=== PATIENT | female | born 1995 | race American Indian/Alaskan Native ===

== ENCOUNTER 2016-08-11 08:51 | Emergency (ER) | payer SELFPAY ==
[2016-08-11 10:05] LABS: Basophils % (Auto) 0.6 % (0.0-1.8); Eosinophils % (Auto) 0.7 % (0.0-4.3); Hematocrit 36.8 % (30.3-42.9); Hemoglobin 11.4 gm/dl (10.1-14.3); Mean Corpuscular HGB Conc 31 % (30-34); Mean Corpuscular Volume 74 fl (79-97); Platelet Count 265 K/mm3 (140-440); Red Blood Count 4.98 M/mm3 (3.65-5.03); Red Cell Distribution Width 16.2 % (13.2-15.2); White Blood Count 5.2 K/mm3 (4.5-11.0)
[2016-08-11 10:12] LABS: Mean Corpuscular Hemoglobin 23 pg (28-32)
[2016-08-11 10:26] LABS: Anion Gap 19 mmol/L; BUN/Creatinine Ratio 18.33; Blood Urea Nitrogen 11 mg/dL (7-17); Calcium 9.9 mg/dL (8.4-10.2); Carbon Dioxide 26 mmol/L (22-30); Chloride 99.3 mmol/L (98-107); Glucose 92 mg/dL (65-100); Sodium 140 mmol/L (137-145)
[2016-08-11] MEDS ORDERED: BENADRYL IV ONE (11:07)
[2016-08-11] MEDS ORDERED: COMPAZINE IV ONE (11:14)
[2016-08-11] MEDS ORDERED: NACL 0.9% 1000 ML 1,000 ML ONE (11:41)
[2016-08-11] MEDS ORDERED: NACL 0.9% 1000 ML 1,000 ML IV ONE (11:45)
[2016-08-11] MEDS ORDERED: COMPAZINE 10 MG in NACL 0.9% 50 ML IV ONE (12:30)
--- NOTE | 2016-08-11 13:07 | Cat Scan Report ---
CT scan of head without contrast: History: Headache. Findings: Ventricles normal in size midline location. No evidence of acute ischemia, hemorrhage or mass. No extra-axial fluid collection. Normal brainstem and cerebellum. Normal sinuses and mastoid air cells. Impression: Essentially negative CT scan of head.
[2016-08-11 14:34] LABS: Bacteria,Urine 1+ /HPF (Negative); Bilirubin,Urine NEG (Negative); Blood,Urine NEG (Negative); Ketones,Urine 20 mg/dL (Negative); Leukocyte Esterase,Urine SM (Negative); Mucus,Urine 3+ /HPF; Nitrite,Urine NEG (Negative); Urobilinogen,Urine < 2.0 mg/dL (<2.0)
[2016-08-11 15:09] VITALS: BP 136/81
--- NOTE | 2016-08-11 22:06 | Emergency Department Report ---
Entered by ELLIOTT ARAUJO, acting as scribe for FREDI CASILLAS NP. ED Headache HPI - General Chief Complaint: Headache Stated Complaint: HEADACHE AND DIZZY X 3 DAYS Time Seen by Provider: 08/11/16 10:52 Source: patient Exam Limitations: no limitations - History of Present Illness Initial Comments: 21 year old female with no significant PMHx presents to the ED c/o of a gradual headache that began this morning. Patient states that she's had a constant headache for three days, but was given an unknown medication from her grandmother that relieved her headache last night. She states headaches are constant, throbbing, and aching in quality and an 8 out 10 in severity. Patient stated that heading starting 3 days ago as "sudden, striking worst headache in her life". Patient denies history of headaches. Deneis any head injury or trauma. During that time patient denies any n/v, dizziness, shortness of breath , chest pain, loss of level consciousness. Patient states that it feels like her "brain is moving side to side with dizziness" when she bends over. Associated symptoms include decreased appetite/thirst, but she denies abdominal pain, fever, chills, nausea, vomiting, and diarrhea. She reports taking Aleve and [id number] body/back pain pills the first couple of days with no relief. Denies tobacco use and EtOH consumption. In the ED, she also reports small bumps on bilateral vaginal labia and bilateral inner thighs that began 2 weeks ago. Patient states that associated symptoms began after sexual intercourse. Associated symptoms includes dysuria, itching, clear/yellowish thick discharge, and vaginal odor. LMP 08/06/2016. Timing/Duration: constant, other (3 days) Quality: moderate, achy, constant, throbbing Head Injury Location: frontal (bilateral), temporal (bilateral) Recent Head Trauma: no recent headache/trauma Modifying Factors: improves with: other (improve with unknown medication with mild relief). worse with: medication (Aleve) Associated Symptoms: denies: fever/chills, nausea/vomiting, numbness in legs/ feet, vision changes, other (diarrhea, abdominal pain, and tingling, but reports decreased appetite/thirst) Allergies/Adverse Reactions: Allergies No Known Allergies Allergy (Unverified 08/11/16 09:42) Home Medications: Ambulatory Orders Fluconazole [Diflucan TAB] 150 mg PO ONCE #1 tablet 08/11/16 Naproxen [Naprosyn TAB] 500 mg PO BID PRN #14 tablet 08/11/16 metroNIDAZOLE [Flagyl] 500 mg PO Q12HR 7 Days 08/11/16 ED Review of Systems Comment: All other systems reviewed and negative Constitutional: denies: chills, fever, other (tingling, but reports decreased appetite/thirst) Eyes: denies: vision change ENT: denies: ear pain, throat pain Respiratory: denies: cough, shortness of breath, wheezing Cardiovascular: denies: chest pain, palpitations Endocrine: no symptoms reported Gastrointestinal: denies: abdominal pain, nausea, vomiting, diarrhea Genitourinary: urgency, dysuria, frequency, discharge Musculoskeletal: denies: back pain, joint swelling, arthralgia Skin: denies: rash, lesions Neurological: headache. denies: weakness, numbness, confusion, abnormal gait, vertigo Psychiatric: denies: anxiety, depression Hematological/Lymphatic: denies: easy bleeding, easy bruising ED Past Medical Hx - Past Medical History Previous Medical History?: No - Surgical History Past Surgical History?: No - Social History Smoking Status: Never Smoker Substance Use Type: None - Medications Home Medications: Home Medications Medication Instructions Recorded Confirmed Last Taken Type Fluconazole [Diflucan TAB] 150 mg PO ONCE #1 tablet 08/11/16 Unknown Rx Naproxen [Naprosyn TAB] 500 mg PO BID PRN #14 tablet 08/11/16 Unknown Rx metroNIDAZOLE [Flagyl] 500 mg PO Q12HR 7 Days 08/11/16 Unknown Rx ED Physical Exam - General Limitations: No Limitations General appearance: alert, in no apparent distress - Head Head exam: Present: atraumatic, normocephalic - Eye Eye exam: Present: normal appearance, PERRL, EOMI - ENT ENT exam: Present: normal exam, mucous membranes moist - Neck Neck exam: Present: normal inspection, full ROM. Absent: tenderness, lymphadenopathy - Respiratory Respiratory exam: Present: normal lung sounds bilaterally. Absent: respiratory distress, wheezes, rales, rhonchi, stridor - Cardiovascular Cardiovascular Exam: Present: regular rate, normal rhythm. Absent: systolic murmur, diastolic murmur, rubs, gallop - GI/Abdominal GI/Abdominal exam: Present: soft, normal bowel sounds. Absent: distended, tenderness, guarding, rebound, rigid - External exam: Present: other (clear vaginal discharge, female back order clerk present during exam). Absent: erythema, swelling, lesions, lacerations, ecchymosis, bleeding Speculum exam: Present: vaginal discharge (yellow cottage cheese), cervical discharge, other (slightly foul odor vaginal smell, female back order clerk present during exam). Absent: erythema, vaginal bleeding, foreign body, laceration Bi-manual exam: Present: normal bi-manual exam. Absent: cervical motion tendernes, adnexal tenderness, adnexal mass, uterine enlargement, uterine tenderness - Expanded Exam Expanded Female exam: Absent: vulvar erythema, vulvar tenderness, foreign body External exam: Present: normal. Absent: , bleeding Speculum exam: Present: vaginal discharge (clear/yellowish that appears cottage cheese), other (slightly foul vaginal odor smell). Absent: vaginal bleeding - Extremities Exam Extremities exam: Present: normal inspection, full ROM - Back Exam Back exam: Present: normal inspection, full ROM. Absent: tenderness, paraspinal tenderness, vertebral tenderness - Neurological Exam Neurological exam: Present: alert, oriented X3 - Expanded Neurological Exam Expanded Neurological exam: Absent: innattentive Patient oriented to: Present: person, place, time Speech: Present: fluid speech Cranial nerves: EOM's Intact: Normal, Gag Reflex: Normal, Tongue Deviation: Normal, Nystagmus: Normal, Facial Sensation: Normal, Facial Palsy with Forehead Movement: Normal, Facial Palsy without Forehead Movement: Normal Ataxia: Absent: yes Cerebellar function: Finger to Nose: Normal, Heel to Durán: Normal, Romberg: Normal Upper motor neuron: Ochoa Neglect: Normal, Pronator Drift: Normal, Babinski Sign : Normal, Sensory Extinction: Normal Sensory exam: Upper Extremity Light Touch: Normal, Upper Extremity Pin Prick: Normal, Upper Extremity Temperature: Normal, UE 2 Point Discrimination: Normal, Lower Extremity Light Touch: Normal, Lower Extremity Pin Prick: Normal, Lower Extremity Temperature: Normal, LE 2 Point Discrimination: Normal Motor strength exam: RUE: 5, LUE: 5, RLE: 5, LLE: 5 Best Eye Response ([place]): (4) open spontaneously Best Motor Response ([place]): (6) obeys commands Best Verbal Response ([place]): (5) oriented [place] Total: 15 - Psychiatric Psychiatric exam: Present: normal affect, normal mood - Skin Skin exam: Present: warm, dry, intact ED Course Vital Signs 08/11/16 08/11/16 09:52 15:08 Temperature 97.9 F Pulse Rate 85 80 Respiratory 18 16 Rate Blood Pressure 141/87 Blood Pressure 136/81 [Left] O2 Sat by Pulse 100 100 Oximetry - Reevaluation(s) Reevaluation #1: 08/11/16 11:51 Dr. Wright of the patient and plan of care during this visit. 08/11/16 13:56 Patient stating headache has subsided. Patient stating headache is [address] scan is negative as per Dr. John. ED Medical Decision Making - Lab Data Result diagrams: 08/11/16 09:48 08/11/16 09:48 - Medical Decision Making Ed course: 21-year-old female that presents for headache 3 days. 1- IV with NS started. 2- IV Benadry 25mg plus compazine 10mg prescribed. Patient headache is 0 out of 10 now. States feels much better. 3- Dr. Wright aware of patient and plan of care 4- Wet prep and cultures sent to lab 6-Ct of head wo contrast results: By Dr. John. Essentially negative CT scan of the head. 7- at this time the patient is nontoxic in appearance or ill. No signs of any distress. Patient has no questions about discharge plan. ED Disposition Clinical Impression: Tension type headache, unspecified, Bacterial vaginosis Disposition: DISCHARGED TO HOME OR SELFCARE Is pt being admited?: No Does the pt Need Aspirin: No Condition: Stable Instructions: Bacterial Vaginosis (ED) Additional Instructions: follow-up with a internet database specialist and 3-5 days. Please follow up with primary care doctor in 3-5 days. If signs and symptoms of headache worsen, nausea vomiting, shortness of breath, chest pain, or numbness or tingling sensation is reported by the emergency room. Prescriptions: Fluconazole [Diflucan TAB] 150 mg PO ONCE #1 tablet metroNIDAZOLE [Flagyl] 500 mg PO Q12HR 7 Days Naproxen [Naprosyn TAB] 500 mg PO BID PRN #14 tablet PRN Reason: Pain Referrals: PRIMARY CARE, [Primary Care Provider] - 3-5 Days [facility] [Provider Group] - 3-5 Days Forms: STI Treatment and Prevention, Work/School Release Form(ED) This documentation as recorded by the GAYLE stephens JASMINE,accurately reflects the service I personally performed and the decisions made by me,FREDI CASILLAS, SOCIAL SCIENCE MANAGER.
== END 2016-08-11 15:08 | disposition home or self-care (01) ==
LOC: ED 08:51
DX: G44.209 Tension-type headache, unspecified, not intractable (principal); N76.0 Acute vaginitis
CPT/HCPCS: 36415; 70450; 80048; 81001; 81025; 84484; 85025; 87086; 87210; 87591; 96361; 96365; 96375; 99285; J0780; J1200; J7030

== ENCOUNTER 2017-03-16 11:26 | Emergency (ER) | payer SELFPAY ==
[2017-03-16 13:10] LABS: Bacteria,Urine 1+ /HPF (Negative); Bilirubin,Urine NEG (Negative); Blood,Urine NEG (Negative); Ketones,Urine NEG (Negative); Leukocyte Esterase,Urine SM (Negative); Mucus,Urine FEW /HPF; Nitrite,Urine NEG (Negative); Protein,Urine <15 mg/dL mg/dL (Negative)
[2017-03-16] MEDS ORDERED: TORADOL IM ONE (13:23)
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
--- NOTE | 2017-03-16 14:01 | XRay Report ---
Single view pelvis: Next History: Pelvic pain. Findings: No lytic or blastic lesion. No radiopaque calculus or abnormal calcification. Impression: Essentially negative pelvis.
--- NOTE | 2017-03-16 14:02 | XRay Report ---
Lumbar spine 2 views: History: Pain. Findings: Normal height of vertebral bodies and intervertebral disc. Normal articular surfaces. No fracture. No soft tissue calcification. Impression: No bony or articular abnormality lumbar spine.
[2017-03-16] MEDS ORDERED: NACL 0.9% 1000 ML 1,000 ML IV ONE (14:16)
[2017-03-16 17:06] VITALS: BP 108/68
== END 2017-03-16 17:22 | disposition home or self-care (01) ==
LOC: ED 11:26
DX: M54.42 Lumbago with sciatica, left side (principal); M54.17 Radiculopathy, lumbosacral region; D72.829 Elevated white blood cell count, unspecified
CPT/HCPCS: 72100; 72170; 81001; 81025; 87086; 96360; 96372; 99284; J1885; J7030

== ENCOUNTER 2017-03-18 11:02 | Emergency (ER) | payer SELFPAY ==
[2017-03-18 11:15] VITALS: BP 117/44
--- NOTE | 2017-03-18 13:05 | Emergency Department Report ---
Abscess Boil HPI - HPI Chief Complaint: Skin/Abscess/Foreign Body Stated Complaint: ABSCESS LOWER BACK Time Seen by Provider: 03/18/17 12:54 Duration: 5 Days Location: Sacral/Pilonidal History: Yes Pain, Yes Purulent Drainage, No Fever, No Numbness, No Foreign Body , No Previous History, No Insect Bite HPI: Pt seen for low back pain a couple days ago and got worse. States she felt something wet last night and realized she had an abscess that had started to drain where the pain was. Was unaware that this was present prior as she had not felt anything abnormal in that area. Pain and swelling continues. Home Medications: Previous Rx's Medication Instructions Recorded Last Taken Type Fluconazole [Diflucan TAB] 150 mg PO ONCE #1 tablet 08/11/16 Unknown Rx Naproxen [Naprosyn TAB] 500 mg PO BID PRN #14 tablet 08/11/16 Unknown Rx metroNIDAZOLE [Flagyl] 500 mg PO Q12HR 7 Days tab 08/11/16 Unknown Rx Cyclobenzaprine HCl [Flexeril 5 MG 5 mg PO TID PRN #15 tab 03/16/17 Unknown Rx TAB] Ibuprofen [Motrin 600 MG tab] 600 mg PO Q8H PRN #15 tablet 03/16/17 Unknown Rx Acetaminophen/Codeine [Tylenol 1 tab PO Q6H PRN #12 tab 03/18/17 Unknown Rx /Codeine # 3 tab] Sulfamethoxazole/Trimethoprim 1 each PO BID #20 tablet 03/18/17 Unknown Rx [Bactrim DS TAB] Allergies/Adverse Reactions: Allergies Allergy/AdvReac Type Severity Reaction Status Date / Time No Known Allergies Allergy Verified 03/18/17 11:09 ED Review of Systems ROS: Stated complaint: ABSCESS LOWER BACK Other details as noted in HPI Comment: All other systems reviewed and negative Constitutional: denies: chills, fever Eyes: denies: eye pain, eye discharge, vision change ENT: denies: ear pain, throat pain Respiratory: denies: cough, shortness of breath, wheezing Cardiovascular: denies: chest pain, palpitations Endocrine: no symptoms reported Gastrointestinal: denies: abdominal pain, nausea, diarrhea Genitourinary: denies: urgency, dysuria, discharge Musculoskeletal: denies: back pain, joint swelling, arthralgia Skin: denies: rash, lesions Neurological: denies: headache, weakness, paresthesias Psychiatric: denies: anxiety, depression Hematological/Lymphatic: denies: easy bleeding, easy bruising ED Past Medical Hx - Past Medical History Previous Medical History?: No - Surgical History Past Surgical History?: No - Social History Smoking Status: Never Smoker Substance Use Type: None - Medications Home Medications: Home Medications Medication Instructions Recorded Confirmed Last Taken Type Fluconazole [Diflucan TAB] 150 mg PO ONCE #1 tablet 08/11/16 Unknown Rx Naproxen [Naprosyn TAB] 500 mg PO BID PRN #14 tablet 08/11/16 Unknown Rx metroNIDAZOLE [Flagyl] 500 mg PO Q12HR 7 Days tab 08/11/16 Unknown Rx Cyclobenzaprine HCl [Flexeril 5 MG 5 mg PO TID PRN #15 tab 03/16/17 Unknown Rx TAB] Ibuprofen [Motrin 600 MG tab] 600 mg PO Q8H PRN #15 tablet 03/16/17 Unknown Rx Acetaminophen/Codeine [Tylenol 1 tab PO Q6H PRN #12 tab 03/18/17 Unknown Rx /Codeine # 3 tab] Sulfamethoxazole/Trimethoprim 1 each PO BID #20 tablet 03/18/17 Unknown Rx [Bactrim DS TAB] ED Abscess Boil Physical Exam - Exam General: Vital signs noted. No distress. Alert and acting appropriately. Large pilonidal sinus tract with abscess extending to both buttocks. Size: >5 cm Exam: Yes Tenderness, Yes Fluctuance, Yes Surrounding Cellulites/Erythema, Yes Normal Neurologic Exam, Yes Normal Circulation, No Lymphangitis, No Crepitation , No Heart Murmur I & D Note - I & D Note I & D Note: Area was prepped and draped in usual sterile fashion. Betadine x 3. Immediatelly noted copious drainage from small opening in gluteal cleft. Lidocaine 2% (3 cc) injected and opening enlarged with 11 blade. Copious purulent drianage continued. Packed with iodoform gauze (1/2 inch). ED Course Vital Signs 03/18/17 03/18/17 11:09 12:51 Temperature 98.6 F Pulse Rate 127 H 105 H Blood Pressure 117/44 O2 Sat by Pulse 99 Oximetry - Reevaluation(s) Reevaluation #1: 03/18/17 13:51 Pt is in NAD and stable for d/c. Critical care attestation.: If time is entered above; I have spent that time in minutes in the direct care of this critically ill patient, excluding procedure time. ED Medical Decision Making - Medical Decision Making Pilonidal sinus tract with abscess s/p I&D. Follow in 2 days for recheck. IM Cleocin given today. - Differential Diagnosis abscess, cellulitis ED Disposition Clinical Impression: Pilonidal sinus with abscess Disposition: TO HOME OR SELFCARE Is pt being admited?: No Condition: Good Instructions: Abscess (ED), Abscess Incision and Drainage (ED) Prescriptions: Acetaminophen/Codeine [Tylenol /Codeine # 3 tab] 1 tab PO Q6H PRN #12 tab PRN Reason: Pain Sulfamethoxazole/Trimethoprim [Bactrim DS TAB] 1 each PO BID #20 tablet Referrals: PRIMARY CARE,MD [Primary Care Provider] - 3-5 Days MARIE HOLCOMB DO [Staff Physician] - 3-5 Days Time of Disposition: 14:19
[2017-03-18] MEDS ORDERED: XYLOCAINE 2% INFILTRATI ONE (13:07)
[2017-03-18] MEDS ORDERED: CLEOCIN IM ONE (13:34)
== END 2017-03-18 14:50 | disposition home or self-care (01) ==
LOC: ED 11:02
DX: L05.01 Pilonidal cyst with abscess (principal)
CPT/HCPCS: 96372

== ENCOUNTER 2017-03-20 11:42 | Emergency (ER) | payer SELFPAY ==
[2017-03-20 11:56] VITALS: BP 122/65
--- NOTE | 2017-03-20 14:40 | Emergency Department Report ---
ED Recheck HPI - General Chief Complaint: Wound/Laceration Stated Complaint: FOLLOW UP, PACKING REMOVAL Time Seen by Provider: 03/20/17 13:56 Source: patient Mode of arrival: Ambulatory Limitations: No Limitations - History of Present Illness Initial Comments: This is a 21-year-old female nontoxic, well nourished in appearance, no acute signs of distress presents to the ED for reevaluation of incision and drainage. Patient states she had a incision and drainage 2 days ago. Patient does agree to take antibiotics; Bactrim. Denies any pus, drainage, fever, chills, nausea, vomiting, chest pain shortness of breath. Denies fever or chills. MD Complaint: wound re-check -: Gradual, days(s) (2) Initial Visit For: abscess Returns Today for: wound recheck Symptoms Since Prior Visit: no new symptoms, improved Context: planned re-check Associated Symptoms: none. denies: fever, chills, chest pain, shortness of breath, rash, malaise, nasuea, abdominal pain - Related Data Previous Rx's Medication Instructions Recorded Last Taken Type Fluconazole [Diflucan TAB] 150 mg PO ONCE #1 tablet 08/11/16 Unknown Rx Naproxen [Naprosyn TAB] 500 mg PO BID PRN #14 tablet 08/11/16 Unknown Rx metroNIDAZOLE [Flagyl] 500 mg PO Q12HR 7 Days tab 08/11/16 Unknown Rx Cyclobenzaprine HCl [Flexeril 5 MG 5 mg PO TID PRN #15 tab 03/16/17 Unknown Rx TAB] Ibuprofen [Motrin 600 MG tab] 600 mg PO Q8H PRN #15 tablet 03/16/17 Unknown Rx Acetaminophen/Codeine [Tylenol 1 tab PO Q6H PRN #12 tab 03/18/17 Unknown Rx /Codeine # 3 tab] Sulfamethoxazole/Trimethoprim 1 each PO BID #20 tablet 03/18/17 Unknown Rx [Bactrim DS TAB] Allergies Allergy/AdvReac Type Severity Reaction Status Date / Time No Known Allergies Allergy Verified 03/18/17 11:09 ED Review of Systems ROS: Stated complaint: FOLLOW UP, PACKING REMOVAL Other details as noted in HPI Constitutional: denies: chills, fever Eyes: denies: eye pain, eye discharge, vision change ENT: denies: ear pain, throat pain Respiratory: denies: cough, shortness of breath, wheezing Cardiovascular: denies: chest pain, palpitations Endocrine: no symptoms reported Gastrointestinal: denies: abdominal pain, nausea, diarrhea Genitourinary: denies: urgency, dysuria, discharge Musculoskeletal: denies: back pain, joint swelling, arthralgia Skin: denies: rash, lesions Neurological: denies: headache, weakness, paresthesias Psychiatric: denies: anxiety, depression Hematological/Lymphatic: denies: easy bleeding, easy bruising ED Past Medical Hx - Past Medical History Previous Medical History?: Yes Additional medical history: Boil - Surgical History Past Surgical History?: No - Social History Smoking Status: Never Smoker Substance Use Type: Prescribed - Medications Home Medications: Home Medications Medication Instructions Recorded Confirmed Last Taken Type Fluconazole [Diflucan TAB] 150 mg PO ONCE #1 tablet 08/11/16 Unknown Rx Naproxen [Naprosyn TAB] 500 mg PO BID PRN #14 tablet 08/11/16 Unknown Rx metroNIDAZOLE [Flagyl] 500 mg PO Q12HR 7 Days tab 08/11/16 Unknown Rx Cyclobenzaprine HCl [Flexeril 5 MG 5 mg PO TID PRN #15 tab 03/16/17 Unknown Rx TAB] Ibuprofen [Motrin 600 MG tab] 600 mg PO Q8H PRN #15 tablet 03/16/17 Unknown Rx Acetaminophen/Codeine [Tylenol 1 tab PO Q6H PRN #12 tab 03/18/17 Unknown Rx /Codeine # 3 tab] Sulfamethoxazole/Trimethoprim 1 each PO BID #20 tablet 03/18/17 Unknown Rx [Bactrim DS TAB] ED Physical Exam - General Limitations: No Limitations General appearance: alert, in no apparent distress - Head Head exam: Present: atraumatic, normocephalic - Eye Eye exam: Present: normal appearance - ENT ENT exam: Present: mucous membranes moist - Neck Neck exam: Present: normal inspection - Respiratory Respiratory exam: Present: normal lung sounds bilaterally. Absent: respiratory distress - Cardiovascular Cardiovascular Exam: Present: regular rate, normal rhythm. Absent: systolic murmur, diastolic murmur, rubs, gallop - GI/Abdominal GI/Abdominal exam: Present: soft, normal bowel sounds - Extremities Exam Extremities exam: Present: normal inspection - Back Exam Back exam: Present: normal inspection - Neurological Exam Neurological exam: Present: alert, oriented X3 - Psychiatric Psychiatric exam: Present: normal affect, normal mood - Skin Skin exam: Present: warm, dry, intact, normal color, other (dressing to the gluteal cleft of the upper buttock region midline). Absent: rash ED Course Vital Signs 03/20/17 11:51 Temperature 98 F Pulse Rate 111 H Respiratory 20 Rate Blood Pressure 122/65 O2 Sat by Pulse 96 Oximetry - Reevaluation(s) Reevaluation #1: 03/20/17 14:42 Patient is speaking in full sentences with no signs of distress noted. ED Recheck MDM - Medical Decision Making 21-year-old female that presents with reevaluation of I&D. Upon examination with corporate trust officer Lori present during exam. 1 inch iodoform packing removed with some purulent drainage noted. I irrigated with normal saline. A sterile 4 x 4 dressing with tube has been applied. Patient was instructed to continue taking antibiotics as prescribed. Patient was instructed to Follow-up with a primary care doctor in 3-5 days or if symptoms worsen and continue return to emergency room as soon as possible. At time time of discharge, the patient does not seem toxic or ill in appearance. No acute signs of distress noted. Patient agrees to discharge treatment plan of care. No further questions noted by the patient. Critical care attestation.: If time is entered above; I have spent that time in minutes in the direct care of this critically ill patient, excluding procedure time. ED Disposition Clinical Impression: Encounter for recheck of abscess following incision and drainage Disposition: DC-01 TO HOME OR SELFCARE Is pt being admited?: No Does the pt Need Aspirin: No Condition: Stable Instructions: Sulfamethoxazole/Trimethoprim (By mouth) Additional Instructions: Follow-up with a primary care doctor in 3-5 days or if symptoms worsen and continue return to emergency room as soon as possible. Continue taking antibiotics as prescribed Referrals: PRIMARY CAREMD [Primary Care Provider] - 3-5 Days HUDSON KELLOGG MD [Staff Physician] - 3-5 Days [facility] [Outside] - 3-5 Days [facility] [Outside] - 3-5 Days Forms: Work/School Release Form(ED)
== END 2017-03-20 15:02 | disposition home or self-care (01) ==
LOC: ED 11:42
DX: L02.31 Cutaneous abscess of buttock (principal)
CPT/HCPCS: 99282

== ENCOUNTER 2018-09-21 21:08 | Emergency (ER) | payer SELFPAY ==
--- NOTE | 2018-09-21 21:57 | Emergency Department Report ---
Blank Doc - Documentation Documentation: pt states she has epigastric pain and bilateral back pain +nausea no V no diarrhea last BM was yesterday no urinary sx LNMP: September 12 no PMHx no allergies to medications no daily meds non smoker non drinker no drug use
[2018-09-21 22:49] LABS: Basophils % (Auto) 0.4 % (0.0-1.8); Eosinophils % (Auto) 0.6 % (0.0-4.3); Hematocrit 34.6 % (30.3-42.9); Hemoglobin 11.2 gm/dl (10.1-14.3); Lymphocytes # (Auto) 2.1 K/mm3 (1.2-5.4); Lymphocytes % (Auto) 40.2 % (13.4-35.0); Mean Corpuscular HGB Conc 32 % (30-34); Mean Corpuscular Volume 77 fl (79-97); Monocytes # (Auto) 0.5 K/mm3 (0.0-0.8); Monocytes % (Auto) 8.9 % (0.0-7.3); Platelet Count 320 K/mm3 (140-440); Red Blood Count 4.49 M/mm3 (3.65-5.03); Red Cell Distribution Width 16.5 % (13.2-15.2)
[2018-09-21 23:04] LABS: Alanine Aminotransferase 17 units/L (7-56); Albumin 4.1 g/dL (3.9-5); BUN/Creatinine Ratio 11; Blood Urea Nitrogen 8 mg/dL (7-17); Calcium 9.5 mg/dL (8.4-10.2); Hemolysis Index 9
[2018-09-21 23:12] LABS: Bacteria,Urine 2+ /HPF (Negative); Bilirubin,Urine NEG (Negative); Blood,Urine NEG (Negative); Color,Urine Yellow (Yellow); Mucus,Urine FEW /HPF; Protein,Urine <15 mg/dL mg/dL (Negative); Urobilinogen,Urine < 2.0 mg/dL (<2.0)
[2018-09-21 23:17] LABS: HCG Qualitative,Urine Negative (Negative)
[2018-09-21] MEDS ORDERED: ZOFRAN ODT PO ONE (23:34)
[2018-09-21] MEDS ORDERED: PEPCID PO ONE (23:34)
[2018-09-21] MEDS ORDERED: MACROBID PO ONE (23:34)
--- NOTE | 2018-09-21 23:44 | Emergency Department Report ---
ED Abdominal Pain HPI - General Chief Complaint: Abdominal Pain Stated Complaint: ABDOMINAL/BACK PAINS Time Seen by Provider: 09/21/18 21:54 Source: patient Mode of arrival: Ambulatory Limitations: No Limitations - History of Present Illness Initial Comments: Patient is a 23-year-old female who is presenting with abdominal pain. Patient has no past medical history is significant. Patient states that she has generalized abdominal discomfort but is worse in the epigastrium as well as her sides. Patient also complains of low back di scomfort. However pains or 5 out of 10 in severity and achy in nature. Patient has some associated nausea with no vomiting and also denies fever chills or vaginal discharge or diarrhea. Patient states she does have some mild urinary frequency. - Related Data Previous Rx's Medication Instructions Recorded Last Taken Type Fluconazole [Diflucan TAB] 150 mg PO ONCE #1 tablet 08/11/16 Unknown Rx Naproxen [Naprosyn TAB] 500 mg PO BID PRN #14 tablet 08/11/16 Unknown Rx metroNIDAZOLE [Flagyl] 500 mg PO Q12HR 7 Days tab 08/11/16 Unknown Rx Cyclobenzaprine HCl [Flexeril 5 MG 5 mg PO TID PRN #15 tab 03/16/17 Unknown Rx TAB] Ibuprofen [Motrin 600 MG tab] 600 mg PO Q8H PRN #15 tablet 03/16/17 Unknown Rx Acetaminophen/Codeine [Tylenol 1 tab PO Q6H PRN #12 tab 03/18/17 Unknown Rx /Codeine # 3 tab] Sulfamethoxazole/Trimethoprim 1 each PO BID #20 tablet 03/18/17 Unknown Rx [Bactrim DS TAB] Nitrofurantoin [place]/M-Cryst 100 mg PO Q12HR #14 capsule 09/21/18 Unknown Rx [Macrobid CAP] Ondansetron [Zofran Odt] 4 mg PO Q8HR #10 tab.rapdis 09/21/18 Unknown Rx Phenazopyridine [Pyridium] 200 mg PO BID #6 tab 09/21/18 Unknown Rx traMADol [Ultram] 50 mg PO Q6HR PRN #12 tablet 09/21/18 Unknown Rx Allergies Allergy/AdvReac Type Severity Reaction Status Date / Time No Known Allergies Allergy Verified 03/18/17 11:09 ED Review of Systems ROS: Stated complaint: ABDOMINAL/BACK PAINS Other details as noted in HPI Comment: All other systems reviewed and negative ED Past Medical Hx - Past Medical History Previous Medical History?: No Additional medical history: Boil - Surgical History Past Surgical History?: No - Social History Smoking Status: Never Smoker Substance Use Type: None - Medications Home Medications: Home Medications Medication Instructions Recorded Confirmed Last Taken Type Fluconazole [Diflucan TAB] 150 mg PO ONCE #1 tablet 08/11/16 Unknown Rx Naproxen [Naprosyn TAB] 500 mg PO BID PRN #14 tablet 08/11/16 Unknown Rx metroNIDAZOLE [Flagyl] 500 mg PO Q12HR 7 Days tab 08/11/16 Unknown Rx Cyclobenzaprine HCl [Flexeril 5 MG 5 mg PO TID PRN #15 tab 03/16/17 Unknown Rx TAB] Ibuprofen [Motrin 600 MG tab] 600 mg PO Q8H PRN #15 tablet 03/16/17 Unknown Rx Acetaminophen/Codeine [Tylenol 1 tab PO Q6H PRN #12 tab 03/18/17 Unknown Rx /Codeine # 3 tab] Sulfamethoxazole/Trimethoprim 1 each PO BID #20 tablet 03/18/17 Unknown Rx [Bactrim DS TAB] Nitrofurantoin [place]/M-Cryst 100 mg PO Q12HR #14 capsule 09/21/18 Unknown Rx [Macrobid CAP] Ondansetron [Zofran Odt] 4 mg PO Q8HR #10 tab.rapdis 09/21/18 Unknown Rx Phenazopyridine [Pyridium] 200 mg PO BID #6 tab 09/21/18 Unknown Rx traMADol [Ultram] 50 mg PO Q6HR PRN #12 tablet 09/21/18 Unknown Rx ED Physical Exam - General Limitations: No Limitations General appearance: alert, in no apparent distress - Head Head exam: Present: atraumatic, normocephalic - Eye Eye exam: Present: normal appearance, PERRL, EOMI - ENT ENT exam: Present: normal orophraynx, mucous membranes moist - Neck Neck exam: Present: normal inspection - Respiratory Respiratory exam: Present: normal lung sounds bilaterally. Absent: respiratory distress, wheezes, rales, rhonchi - Cardiovascular Cardiovascular Exam: Present: regular rate, normal rhythm, normal heart sounds. Absent: systolic murmur, diastolic murmur, rubs, gallop - GI/Abdominal GI/Abdominal exam: Present: soft, tenderness (mild discomfort with palpation of the epigastrium), normal bowel sounds. Absent: distended, guarding, rebound, rigid - Extremities Exam Extremities exam: Present: normal inspection, full ROM - Back Exam Back exam: Present: normal inspection. Absent: paraspinal tenderness, vertebral tenderness - Neurological Exam Neurological exam: Present: alert, oriented X3 - Psychiatric Psychiatric exam: Present: normal affect, normal mood - Skin Skin exam: Present: warm, dry, intact, normal color. Absent: rash ED Course Vital Signs 09/21/18 09/21/18 21:14 21:55 Temperature 97.9 F 97.9 F Pulse Rate 102 H 102 H Respiratory 14 14 Rate Blood Pressure 151/78 151/78 O2 Sat by Pulse 100 100 Oximetry ED Medical Decision Making - Lab Data Result diagrams: 09/21/18 22:03 09/21/18 22:03 Lab Results 09/21/18 09/21/18 09/21/18 Range/Units 22:03 22:03 22:24 WBC 5.3 (4.5-11.0) K/mm3 RBC 4.49 (3.65-5.03) M/mm3 Hgb 11.2 (10.1-14.3) gm/dl Hct 34.6 (30.3-42.9) % MCV 77 L (79-97) fl MCH 25 L (28-32) pg MCHC 32 (30-34) % RDW 16.5 H (13.2-15.2) % Plt Count 320 (140-440) K/mm3 Lymph % (Auto) 40.2 H (13.4-35.0) % [place] % (Auto) 8.9 H (0.0-7.3) % Eos % (Auto) 0.6 (0.0-4.3) % Baso % (Auto) 0.4 (0.0-1.8) % Lymph # 2.1 (1.2-5.4) K/mm3 [place] # 0.5 (0.0-0.8) K/mm3 Eos # 0.0 (0.0-0.4) K/mm3 Baso # 0.0 (0.0-0.1) K/mm3 Seg Neutrophils % 49.9 (40.0-70.0) % Seg Neutrophils # 2.6 (1.8-7.7) K/mm3 Sodium 142 (137-145) mmol/L Potassium 4.0 (3.6-5.0) mmol/L Chloride 99.9 (98-107) mmol/L Carbon Dioxide 27 (22-30) mmol/L Anion Gap 19 mmol/L BUN 8 (7-17) mg/dL Creatinine 0.7 (0.7-1.2) mg/dL Estimated GFR > 60 ml/min BUN/Creatinine Ratio 11 % Glucose 92 (65-100) mg/dL Calcium 9.5 (8.4-10.2) mg/dL Total Bilirubin < 0.20 (0.1-1.2) mg/dL AST 24 (5-40) units/L ALT 17 (7-56) units/L Alkaline Phosphatase 87 (35-129) units/L Total Protein 8.3 H (6.3-8.2) g/dL Albumin 4.1 (3.9-5) g/dL Albumin/Globulin Ratio 1.0 % Lipase 37 (13-60) units/L Urine Color Yellow (Yellow) Urine Turbidity Cloudy (Clear) Urine pH 5.0 (5.0-7.0) Ur Specific [place] 1.015 (1.003-1.030) Urine Protein <15 mg/dl (Negative) mg/dL Urine Glucose (UA) Neg (Negative) mg/dL Urine Ketones Neg (Negative) mg/dL Urine Blood Neg (Negative) Urine Nitrite Neg (Negative) Urine Bilirubin Neg (Negative) Urine Urobilinogen < 2.0 (<2.0) mg/dL Ur Leukocyte Esterase Lg (Negative) Urine WBC (Auto) 59.0 H (0.0-6.0) /HPF Urine RBC (Auto) 11.0 (0.0-6.0) /HPF U Epithel Cells (Auto) 20.0 H (0-13.0) /HPF Urine Bacteria (Auto) 2+ (Negative) /HPF Urine Mucus Few /HPF Urine HCG, Qual Negative (Negative) - Medical Decision Making Patient with evidence of UTI. Patient's nausea likely secondary to general infection. Patient to be started on Macrobid given meds for symptomatic relief and she'll be discharged home. Critical care attestation.: If time is entered above; I have spent that time in minutes in the direct care of this critically ill patient, excluding procedure time. ED Disposition Clinical Impression: UTI (urinary tract infection) Qualifiers: Urinary tract infection type: site unspecified Hematuria presence: without hematuria Qualified Code(s): N39.0 - Urinary tract infection, site not specified Disposition: TO HOME OR SELFCARE Is pt being admited?: No Does the pt Need Aspirin: No Condition: Stable Instructions: Urinary Tract Infection in Women (ED) Referrals: MATTIE LEZAMA MD [Referring] - 3-5 Days Time of Disposition: 23:44
[2018-09-22 00:07] VITALS: BP 151/76
== END 2018-09-21 23:59 | disposition home or self-care (01) ==
LOC: ED 21:08
DX: N39.0 Urinary tract infection, site not specified (principal); Z79.899 Other long term (current) drug therapy
CPT/HCPCS: 36415; 80053; 81001; 81025; 83690; 85025; 99283; Q0162

== ENCOUNTER 2021-02-24 11:31 | Emergency (ER) | payer SELFPAY ==
[2021-02-24 11:37] VITALS: BP 133/81
--- NOTE | 2021-02-24 11:51 | Emergency Department Report ---
HPI - General Chief Complaint: Earache Time Seen by Provider: 02/24/21 11:40 - HPI HPI: MSE 1 The patient is a 25-year-old female present with a chief complaint of "I guess I have an ear infection." The patient states over the past 3 days she has been getting over a cold which included a cough and rhinorrhea. Patient states yesterday she developed left ear pain and this morning hearing attenuation from the left ear. Patient denies history of fever or sore throat ED Past Medical Hx - Past Medical History Previous Medical History?: No Additional medical history: Boil - Surgical History Past Surgical History?: No - Family History Family history: no significant - Social History Smoking Status: Never Smoker Substance Use Type: None (Denies illicit drug use) - Medications Home Medications: Home Medications Medication Instructions Recorded Confirmed Last Taken Type Fluconazole (Nf) [Diflucan TAB] 150 mg PO ONCE #1 tablet 08/11/16 Unknown Rx Naproxen [Naprosyn TAB] 500 mg PO BID PRN #14 tablet 08/11/16 Unknown Rx metroNIDAZOLE [Flagyl] 500 mg PO Q12HR 7 Days tab 08/11/16 Unknown Rx Cyclobenzaprine HCl [Flexeril 5 MG 5 mg PO TID PRN #15 tab 03/16/17 Unknown Rx TAB] Ibuprofen [Motrin 600 MG tab] 600 mg PO Q8H PRN #15 tablet 03/16/17 Unknown Rx Acetaminophen/Codeine [Tylenol 1 tab PO Q6H PRN #12 tab 03/18/17 Unknown Rx /Codeine # 3 tab] Sulfamethoxazole/Trimethoprim 1 each PO BID #20 tablet 03/18/17 Unknown Rx [Bactrim DS TAB] Nitrofurantoin [place]/M-Cryst 100 mg PO Q12HR #14 capsule 09/21/18 Unknown Rx [Macrobid CAP] Ondansetron [Zofran Odt] 4 mg PO Q8HR #10 tab.rapdis 09/21/18 Unknown Rx Phenazopyridine [Pyridium] 200 mg PO BID #6 tab 09/21/18 Unknown Rx traMADoL [Ultram] 50 mg PO Q6HR PRN #12 tablet 09/21/18 Unknown Rx Amoxicillin/Potassium Clav 1 - 2 each PO Q12H #20 tablet 02/24/21 Unknown Rx [Augmentin 875-125 Tablet] HYDROcodone/APAP 5-325 [Milfay 1 - 2 each PO Q6HR PRN #14 tablet 02/24/21 Unknown Rx 5/325] Ibuprofen [Motrin 800 MG tab] 800 mg PO Q8HR PRN #20 tablet 02/24/21 Unknown Rx ED Review of Systems ROS: Stated complaint: PAIN ON LEFT SIDE OF FACE Other details as noted in HPI Constitutional: denies: fever Eyes: denies: eye pain ENT: ear pain, hearing loss Respiratory: cough Cardiovascular: denies: chest pain Endocrine: no symptoms reported Gastrointestinal: denies: abdominal pain Genitourinary: denies: dysuria Musculoskeletal: denies: back pain Neurological: denies: headache Physical Exam - Physical Exam Vital Signs: Vital Signs 02/24/21 11:35 Temperature 99.4 F Pulse Rate 104 H Respiratory 18 Rate Blood Pressure 133/81 O2 Sat by Pulse 99 Oximetry Physical Exam: GENERAL: The patient is well-developed well-nourished female sitting in chair not appearing to be in acute distress. [] HEENT: Normocephalic. Atraumatic. Extraocular motions are intact. Right TM clear however there is an approximately 10% effusion that is cloudy in appearance. Left TM is erythematous with an approximately 20% cloudy effusion NECK: Supple. Trachea midline. No stridor CHEST/LUNGS: There is no respiratory distress noted. SKIN: There is no rash. There is no edema. There is no diaphoresis. NEURO: The patient is awake, alert, and oriented. The patient is cooperative. The patient has no focal neurologic deficits. The patient has normal speech. GCS 15 MUSCULOSKELETAL: There is no evidence of acute injury. ED Course Vital Signs 02/24/21 11:35 Temperature 99.4 F Pulse Rate 104 H Respiratory 18 Rate Blood Pressure 133/81 O2 Sat by Pulse 99 Oximetry ED Medical Decision Making - Differential Diagnosis Otitis media Critical care attestation.: If time is entered above; I have spent that time in minutes in the direct care of this critically ill patient, excluding procedure time. ED Disposition Clinical Impression: Acute otitis media with effusion of left ear, Acute effusion of right ear Disposition: HOME / SELF CARE / HOMELESS Is pt being admited?: No Does the pt Need Aspirin: No Condition: Stable Instructions: Otitis Media (ED), Otitis Media, Adult, [id number] Additional Instructions: Return to the emergency department should you develop worsening symptoms, inability to tolerate food or liquids, high fever or any other concerns Prescriptions: Amoxicillin/Potassium Clav [Augmentin 875-125 Tablet] 1 - 2 each PO Q12H #20 tablet Ibuprofen [Motrin 800 MG tab] 800 mg PO Q8HR PRN #20 tablet PRN Reason: Pain, Moderate (4-6) HYDROcodone/APAP 5-325 [Milfay 5/325] 1 - 2 each PO Q6HR PRN #14 tablet PRN Reason: Pain Referrals: [facility] [Provider Group] - 3-5 Days STEVIE MURRELL MD [Staff Physician] - 3-5 Days (Dr. Murrell is an director investment banking (ear nose and throat doctor). Please follow-up with him for further evaluation) Time of Disposition: 11:52
== END 2021-02-24 12:18 | disposition home or self-care (01) ==
LOC: ED 11:31
DX: H65.192 Other acute nonsuppurative otitis media, left ear (principal); H65.01 Acute serous otitis media, right ear
CPT/HCPCS: 99281